=== PATIENT | male | born 1995 | race Caucasian/White ===

== ENCOUNTER 2023-11-22 12:43 | Emergency (ER) | payer OTHER, SELFPAY ==
[2023-11-22] VITALS (13 sets, daily range): BP systolic 127–137; BP diastolic 76–94; PULSE 61–91; RESP 18; TEMP 36.4; O2SAT 96–98; BMI 36.3
--- NOTE | 2023-11-22 13:52 | CRLHL7_ITS ---
For Patients: As a result of the Century Cures Act, medical imaging exams and procedure reports are released immediately into your electronic medical record. You may view this report before your referring provider. If you have questions, please contact your health care provider. INDICATION: Abdominal pain, not otherwise described. COMPARISON: None available. TECHNIQUE: Right upper quadrant grayscale and limited color Doppler ultrasound. FINDINGS: Liver: Diffusely echogenic and coarsened in echotexture. No suspicious focal lesion. No intrahepatic biliary ductal dilatation. Smooth contour. Gallbladder: Nondistended. Free of stones or significant sludge. Normal wall thickness. Negative sonographic Parker sign. CBD: 4mm Pancreas: Normal where visualized. The pancreas is partially obscured and therefore incompletely evaluated. Right Kidney: Normal echotexture. No hydronephrosis. No convincing sonographic evidence of nephrolithiasis. Midline Vasculature: Unremarkable where visualized. Peritoneal Cavity: No significant ascites. Additional Findings: None. IMPRESSION: Abnormal hepatic parenchymal echotexture which is most commonly due to hepatic steatosis. No focal liver lesion. Unremarkable gallbladder. No biliary ductal dilatation. Dictated by Noe Quispe MD @ 11/22/2023 2:29:34 PM (Electronically Signed)
--- NOTE | 2023-11-22 14:25 | ED.ABDPAIN ---
HPI - Abdominal Pain General Date Seen: 11/22/23 Chief Complaint: Abdominal Pain Stated Complaint: abdominal pain Time Seen by Provider: 11/22/23 13:36 Source: patient Mode of arrival: ambulatory Limitations: no limitations History of Present Illness HPI narrative: Patient is a 28-year-old male presenting to the emergency department for abdominal pain. He states over the past 3-4 days he has been having epigastric pain that is worse whenever he eats. States the pain right now is about a 4/10 but gets up to a 8/10 whenever he tries to eat. Do this he has not been eating much for the past couple days. Two days ago he went to in and [facility] early he was tested positive for strep. This was a screening testing was not having any pharyngitis symptoms at that time. States he still not having a sore throat. He was started on cefdinir and sent home. Since he was home he has been continuing to vomit and still having fevers but states the fever isn't as high. The highest fever was last night was 100.6. When he was at the ER he was given a GI cocktail which he states helped the symptoms significantly but only lasted for short amount of time. States the pain is mostly in the epigastric region but does feel like he goes into his chest and is a burning sensation. Denies diarrhea constipation, headache, shortness of breath, weakness, lightheadedness, dizziness. Denies any previous abdominal surgeries. Does state the pain radiates to his right upper quadrant. Related Data Home Medications ?Medication ?Instructions ?Recorded ?Confirmed cefdinir 11/22/23 Previous Rx's ?Medication ?Instructions ?Recorded azithromycin 250 mg tablet See Rx Instructions PO .COMPLEX #6 11/22/23 (Zithromax) tabs omeprazole 40 mg capsule,delayed 40 mg PO DAILY #14 caps 11/22/23 release ondansetron 4 mg disintegrating 4 mg PO Q6H #20 tabs 11/22/23 tablet oxycodone 5 mg tablet 5 mg PO Q6H PRN pain #6 tabs 11/22/23 Allergies Allergy/AdvReac Type Severity Reaction Status Date / Time nickel Allergy Mild Verified 11/22/23 13:15 amoxicillin Allergy Unknown Verified 11/22/23 13:15 Sulfa (Sulfonamide Allergy Unknown Verified 11/22/23 13:15 Antibiotics) Review of Systems Status of ROS Reports: 10 or more systems reviewed and unremarkable except as noted in History and below [facility] Social History Smoking Status: Never smoker Do you use any of these nicotine containing products: None How often do you have a drink containing alcohol: monthly or less AUDIT-C Alcohol total score: 1 Non-prescribed substance use: denies use Exam Narrative: Exam Narrative: Const: Well-nourished, Well-developed, in mild distress Eyes: PERRL, no conjunctival injection, and symmetrical lids HENT: Atraumatic external nose and ears. Moist mucous membranes. Neck: Symmetric, trachea midline, No thyromegaly. CVS: RRR, No murmurs or gallops. Peripheral pulses 2+ and equal in all extremities RESP: Unlabored respiratory effort. Clear to auscultation bilaterally. GI: Nontender/Nondistended, No rebound or guarding. MSK:Extremities w/o deformity, Normal Active ROM Skin: Warm, Dry. No rashes or lesions. Neuro: Normal Muscle tone, No focal neurological deficits. Psych: Awake, Alert, & Oriented x3. Appropriate mood and affect. Const: Vital Signs, click to edit/add: Vital Signs - 24 hr 11/22/23 13:08 Temperature 97.6 F Pulse Rate [Pulse Oximeter] 91 Respiratory Rate 18 Blood Pressure [Ri ght Upper Arm] 137/88 Pulse Oximetry 96 Oxygen Delivery Me thod Room Air Course Vital Signs Vital signs: Initial Vital Signs Temperature 97.6 F 11/22/23 13:08 Temperature Source Temporal Artery Scan 11/22/23 13:08 Pulse Rate 91 11/22/23 13:08 Respiratory Rate 18 11/22/23 13:08 Blood Pressure 137/88 11/22/23 13:08 Blood Pressure Mean 104 11/22/23 13:08 Blood Pressure Position Sitting 11/22/23 13:08 Pulse Oximetry 96 11/22/23 13:08 Oxygen Delivery Method Room Air 11/22/23 13:08 Vital Signs Temperature 97.6 F 11/22/23 13:08 Pulse Rate 91 11/22/23 13:08 Respiratory Rate 18 11/22/23 13:08 Blood Pressure 137/88 11/22/23 13:08 Pulse Oximetry 96 11/22/23 13:08 Oxygen Delivery Method Room Air 11/22/23 13:08 Temperature 97.6 F 11/22/23 13:08 Pulse Rate 91 11/22/23 13:08 Respiratory Rate 18 11/22/23 13:08 Blood Pressure 137/88 11/22/23 13:08 Pulse Oximetry 96 11/22/23 13:08 Oxygen Delivery Method Room Air 11/22/23 13:08 Medications Administered Medications: Discontinued Medications Generic Name Dose Route Start Last Admin Trade Name Stephanie PRN Reason Stop Dose Admin Lactated Ringer's 1,000 mls @ 1,000 mls/hr 11/22/23 13:52 11/22/23 15:04 Lactated Ringers 1000 Ml IV 11/22/23 14:51 1,000 mls/hr .Q1H ONE Administration Morphine Sulfate 4 mg 11/22/23 13:52 11/22/23 15:10 Morphine 4 Mg/Ml Inj IVP 11/22/23 13:53 4 mg ONCE ONE Administration Omeprazole 20 mg 11/22/23 15:46 11/22/23 15:55 Omeprazole [address] PO 11/22/23 15:47 20 mg ONCE ONE Administration Ondansetron HCl 4 mg 11/22/23 13:52 11/22/23 15:17 Ondansetron 2 Mg/Ml Inj IVP 11/22/23 13:53 4 mg ONCE ONE Administration MDM - Abdominal Pain MDM Narrative Medical decision making narrative: Patient is a 28-year-old male presenting to emergency department for epigastric pain. Symptoms ongoing for the past few days. Differential this time includes gastritis, pancreatitis, cholecystitis, less likely to be ESBL concern no previous abdominal surgeries. Considering location of pain unlikely to be diverticulitis or appendicitis. He does described as a burning sensation which makes me consider GERD. Does also state the pain goes up to his chest or will check a troponin and EKG to rule out ACS. Do not currently have CT available as it is being fixed and we do an ultrasound of his gallbladder. Also order lipase, magnesium, CBC, CMP. Patient given Zofran and morphine for symptoms along with a L of fluids. He continues to have no sore throat symptoms and do not believe any neck imaging is necessary. Patient's lab work all returned showing no concerning abnormalities. EKG shows no concerning abnormalities. This time pancreatitis unlikely. No clear signs of infection on lab work. Ultrasound of the right upper quadrant shows fatty liver disease but no signs of gallbladder issues. I did speak to them about possibly doing a CT scan for better evaluation. I explained to the the CT should be fixed within the next hour but there is quite a few people ahead of them so I am unsure exactly how long with take them to get the CT scan. At this time they would prefer to be discharged home. He was able to tolerate oral omeprazole and will be discharged with Zofran and omeprazole. Concerning he is still having the fevers also and azithromycin since he was diagnosed with strep throat. Also give him a couple pills of oxycodone to help with pain management in the meantime. They are agreeable to this plan. Lab Data Labs: Lab Results 11/22/23 11/22/23 11/22/23 Range/Units 14:28 14:55 15:00 WBC 8.85 (4.50-11.00) K/uL RBC 5.47 (4.30-5.90) m/uL Hgb 14.7 (13.5-17.5) gm/dL Hct 45.3 (37.0-53.0) % MCV 83 (80-100) fL MCH 27 (26-34) pg MCHC 33 (32-36) gm/dL RDW Coeff of [place] 12.1 (11.5-15.5) % Plt Count 248 (140-440) K/uL Neut % (Auto) 65.3 (42.0-72.0) % Lymph % (Auto) 21.5 (20-44) % [place] % (Auto) 11.6 H (0.0-11.0) % Eos % (Auto) 1.2 (0.0-7.0) % Baso % (Auto) 0.2 (0.0-3.0) % Neut # (Auto) 5.77 (1.7-7.0) K/uL Lymph # (Auto) 1.90 (0.90-2.90) K/uL [place] # (Auto) 1.00 H (0.00-0.90) K/UL Eos # (Auto) 0.11 (0.00-0.50) K/uL Baso # (Auto) 0.02 (0.00-0.30) K/uL Abs Immat Gran (auto) 0.02 (0.00-0.30) K/uL Imm/Tot Granulo (auto) 0.2 % Sodium 140 (135-149) mmol/L Potassium 3.7 (3.6-5.1) mmol/L Chloride 106 (96-114) mmol/L Carbon Dioxide 24 (20-32) mmol/L Anion Gap 10 (7-15) mEq/L BUN 25 H (5-24) mg/dL Creatinine 0.9 (0.5-1.5) mg/dL Estimated Creat Clear 136.87 Estimated GFR 119 ml/min Glucose 101 (60-115) mg/dL Calcium 9.7 (8.4-10.6) mg/dL Magnesium 2.3 (1.5-2.6) mg/dL Total Bilirubin 0.7 (0.1-1.5) mg/dL AST 41 H (12-35) U/L ALT 52 H (4-50) U/L Alkaline Phosphatase 54 (40-150) U/L Troponin I < 0.01 L (0.01-0.04) ng/mL Total Protein 7.8 (6.0-8.3) g/dL Albumin 4.5 (3.3-5.0) g/dL Lipase 55 (23-300) U/L Lab Acknowledgement Test Added POC Troponin I 0.00 L (0.01-0.04) ng/ml ECG Data Attestation: I personally reviewed and interpreted this ECG as follows: Prior ECG tracings: not available for review Interpretation: Normal sinus rhythm weight to the rate 74 beats per minute, normal intervals, normal axis, no ST or T-wave abnormalities Discharge Plan Discharge Clinical Impression: Gastroenteritis Patient Disposition: Home, Self-Care Condition: Improved Instructions: Gastroenteritis (DC) Additional Instructions: Take the omeprazole daily until symptoms resolve. Continue taking previously prescribed antibiotic an added azithromycin. Use the Zofran as needed for nausea. Take Tylenol for pain and but that is not working he can try oxycodone. Return to emergency department for new or worsening symptoms. Prescriptions: New ondansetron 4 mg tablet,disintegrating 4 mg PO Q6H Qty: 20 0RF oxycodone 5 mg tablet 5 mg PO Q6H PRN (Reason: pain) Qty: 6 0RF omeprazole 40 mg capsule,delayed release(DR/EC) 40 mg PO DAILY Qty: 14 0RF azithromycin [Zithromax] 250 mg tablet See Rx Instructions PO .COMPLEX Qty: 6 0RF Rx Instructions: For 250 mg dose pack: take 500 mg today (day 1), then 250 mg for 4 days (days 2-5) No Action cefdinir Follow Up/Referrals: Provider,Not a Local [Primary Care Provider] - Stand Alone Forms: [employer] Info Instructions
[2023-11-22 15:02] LABS: Basophils Absolute Auto 0.02 K/uL (0.00-0.30); Basophils Percent Auto 0.2 % (0.0-3.0); Eosinophils Absolute Auto 0.11 K/uL (0.00-0.50); Eosinophils Percent Auto 1.2 % (0.0-7.0); Hematocrit 45.3 % (37.0-53.0); Hemoglobin* 14.7 gm/dL (13.5-17.5); Immature Granulocytes Abs Auto 0.02 K/uL (0.00-0.30); Immature Granulocytes Pct Auto 0.2 %; Lymphocytes Percent Auto 21.5 % (20-44); Mean Corpuscular HGB Conc 33 gm/dL (32-36); Mean Corpuscular Hemoglobin 27 pg (26-34); Mean Corpuscular Volume 83 fL (80-100); Monocytes Percent Auto 11.6 % (0.0-11.0); Neutrophils Absolute Auto 5.77 K/uL (1.7-7.0); Neutrophils Percent Auto 65.3 % (42.0-72.0); Platelet Count* 248 K/uL (140-440); RDW Coefficient of Variation % 12.1 % (11.5-15.5); Red Blood Count 5.47 m/uL (4.30-5.90); White Blood Count* 8.85 K/uL (4.50-11.00)
[2023-11-22] MEDS: LACTATED RINGERS 1000 ML 1,000 ML IV (15:04)
[2023-11-22] MEDS: MORPHINE 4 MG/ML INJ IVP (15:10)
[2023-11-22 15:15] LABS: Albumin* 4.5 g/dL (3.3-5.0)
[2023-11-22 15:16] LABS: Chloride* 106 mmol/L (96-114); Potassium* 3.7 mmol/L (3.6-5.1); Sodium* 140 mmol/L (135-149)
[2023-11-22] MEDS: ONDANSETRON 2 MG/ML inj 4 MG IVP (15:17)
[2023-11-22 15:18] LABS: Anion Gap 10 mEq/L (7-15); Aspartate Amino Transferase* 41 U/L (12-35); Bilirubin Total* 0.7 mg/dL (0.1-1.5); Carbon Dioxide* 24 mmol/L (20-32); Creatinine* 0.9 mg/dL (0.5-1.5); Est. Creatinine Clearance* 136.87; Estimated Glomerular Filt Rate 119 ml/min; Total Protein* 7.8 g/dL (6.0-8.3)
[2023-11-22 15:19] LABS: Alanine Aminotransferase* 52 U/L (4-50); Alkaline Phosphatase* 54 U/L (40-150); Blood Urea Nitrogen* 25 mg/dL (5-24); Calcium* 9.7 mg/dL (8.4-10.6); Glucose* 101 mg/dL (60-115); Lipase* 55 U/L (23-300); Magnesium* 2.3 mg/dL (1.5-2.6); Slide Review Reflex No
[2023-11-22 15:31] LABS: Troponin I* < 0.01 ng/mL (0.01-0.04)
[2023-11-22] MEDS: OMEPRAZOLE 20 MG CAPSULE DR PO (15:55)
== END 2023-11-22 16:40 | disposition home or self-care (01) ==
PROVIDERS: Emergency Provider Student in an Organized Health Care Education/Training Program
DX: R10.13 Epigastric pain (principal)
CPT/HCPCS: 36415; 76705; 80053; 83690; 83735; 84484; 85025; 93005; 96374; 96375; 99283; 99284; A9270; J2270; J2405; J7120

== ENCOUNTER 2023-11-23 19:20 | Emergency (ER) | payer OTHER, SELFPAY ==
[2023-11-23 19:30] VITALS: BP 166/80; PULSE 104; RESP 18; TEMP 36.7; O2SAT 96; BMI 36.3
--- NOTE | 2023-11-23 19:45 | CRLHL7_ITS ---
For Patients: As a result of the Century Cures Act, medical imaging exams and procedure reports are released immediately into your electronic medical record. You may view this report before your referring provider. If you have questions, please contact your health care provider. INDICATION: Epigastric pain. TECHNIQUE: CT abdomen and pelvis acquired with 135 cc Isovue 370 IV contrast. COMPARISON: None. FINDINGS: Lower chest: Bleeding scattered atelectasis. Tiny hiatal hernia. Liver: Hepatic steatosis. No suspicious masses. Gallbladder and bile ducts: Unremarkable. No stones or inflammation. No biliary dilatation. Pancreas: Unremarkable. No mass or inflammation. Spleen: Splenomegaly no masses. Adrenal glands: Unremarkable. No nodules. Kidneys: Tiny cortical hypodensities, too small to characterize, including 6 millimeter exophytic right interpolar lesion (series 2/image 69). No suspicious masses, stones, or hydronephrosis. GI tract: Unremarkable. Normal in caliber. No sign of mass or inflammation. Normal appendix. Vasculature: Abdominal aorta is normal in caliber. Mesenteric arteries are patent. Lymph nodes: No lymphadenopathy. Peritoneum/Abdominal Wall: Unremarkable. No sign of mass or infiltration. No free air or significant free fluid. Pelvis: Unremarkable. Bones: Unremarkable for age. IMPRESSION: No acute intra-abdominal/pelvic abnormality. Hepatic steatosis. Mild splenomegaly. Incidental 6 millimeter exophytic right interpolar renal lesion, too small to characterize. Recommend outpatient nonemergent renal ultrasound. Please note that all CT scans at this facility use dose modulation, iterative reconstruction, and/or weight-based dosing when appropriate to reduce radiation dose to as low as reasonably achievable. Dictated by Luis Curran MD @ 11/23/2023 8:27:40 PM (Electronically Signed)
--- NOTE | 2023-11-23 19:47 | ED_ITS ---
HPI - General Adult General Date Seen: 11/23/23 Chief complaint: Abdominal Pain Stated complaint: Abdominal pain Time Seen by Provider: 11/23/23 19:37 Source: patient Mode of arrival: ambulatory Limitations: no limitations History of Present Illness HPI narrative: Patient is a 28-year-old male who is here with parents for evaluation of epigastric pain which has been ongoing for several days now. He was actually here in the ER yesterday, had labs and a right upper quadrant ultrasound all of which were normal. Did feel better briefly after a GI cocktail and was discharged home on omeprazole 40 mg daily which he says he has taken since leaving. He was seen in [facility] in the ER a couple days prior to that, again with epigastric pain, I believe had reported fever at that time and strep testing was done which was positive. He is therefore on antibiotics at this time. He at no time has had any kind of sore throat. Has not had fever today. Does not currently have chest pain or difficulty breathing. No cough. He says right now he does not have significant abdominal pain but as soon as he tries to eat or drink anything the pain becomes severe, and as a result he has really not been able to put anything in his system the past couple of days. He has not vomited any blood although he has had an episode or 2 of vomiting. Minimal stooling, no bloody stools. No ill contacts, no prior history of GI problems, no abdominal surgeries. Did have history of testicular torsion. CT scanner was down yesterday and he elected not to wait until that was up and running again, but has not improved since being seen yesterday. He denies tobacco or alcohol use. Takes occasional ibuprofen for headaches. Related Data Home Medications ?Medication ?Instructions ?Recorded ?Confirmed cefdinir 11/22/23 Previous Rx's ?Medication ?Instructions ?Recorded azithromycin 250 mg tablet See Rx Instructions PO .COMPLEX #6 11/22/23 (Zithromax) tabs omeprazole 40 mg capsule,delayed 40 mg PO DAILY #14 caps 11/22/23 release ondansetron 4 mg disintegrating 4 mg PO Q6H #20 tabs 11/22/23 tablet oxycodone 5 mg tablet 5 mg PO Q6H PRN pain #6 tabs 11/22/23 sucralfate 100 mg/mL oral 10 ml PO QID #1,200 mL 11/23/23 suspension (Carafate) Allergies Allergy/AdvReac Type Severity Reaction Status Date / Time nickel Allergy Mild Verified 11/23/23 20:08 amoxicillin Allergy Unknown Verified 11/23/23 20:08 Sulfa (Sulfonamide Allergy Unknown Verified 11/23/23 20:08 Antibiotics) Review of Systems Status of ROS: Reports: 10 or more systems reviewed and unremarkable except as noted in History and below [facility] Social History Smoking Status: Never smoker Do you use any of these nicotine containing products: None Second hand tobacco smoke exposure: No How often do you have a drink containing alcohol: monthly or less AUDIT-C Alcohol total score: 1 Non-prescribed substance use: denies use Exam Narrative: Exam Narrative: Vital signs as noted above. In general, an alert, nontoxic young man. Looks comfortable. Appears just a little bit pale to me. Head: Normocephalic, atraumatic. Eyes: Pupils are equal reactive. Extraocular movements are full. Conjunctivae are normal. ENT: Mucous membranes are moist. Throat is normal. Neck: Supple without lymphadenopathy. Heart: Regular rate and rhythm. No murmur or rub. Lungs: Clear bilaterally. No increased work of breathing, crackles or wheezes. Abdomen: Abdomen is soft, nondistended and nontender to palpation. Negative Parker's. No McBurney's point tenderness. Extremities: Well perfused. No edema. No calf tenderness. Pulses intact. Neurologic: Patient is alert and oriented to person and place. Speech is fluent. Face is symmetric. Moves all extremities equally. Affect: Normal. Skin: Warm and dry. Well perfused. Const: Vital Signs, click to edit/add: Vital Signs - 24 hr 11/23/23 19:30 Temperature 98.1 F Pulse Rate [Pulse Oximeter] 104 H Respiratory Rate 18 Blood Pressure [Ri ght Upper Arm] 166/80 H Pulse Oximetry 96 Oxygen Delivery Me thod Room Air Course Course ED Course: Records were reviewed from yesterday, really no significant findings there. Will go ahead and repeat some labs, I think repeating a lipase is particularly indicated to rule out pancreatitis. With a negative ultrasound and labs after several days of pain I would suspect this is not related to gallbladder disease. Colitis unlikely in the absence of diarrhea, diverticulitis is a possibility along with gastritis, peptic ulcer disease, duodenal disease, would doubt perforation based on absence of any peritoneal signs after several days of symptoms. Likewise would doubt esophageal perforation given absence of si gnificant findings on exam and labs yesterday. Will do a CT scan today to look for other possible causes. CT scan by my review did not show any acute findings, radiology read as follows: FINDINGS: Lower chest: Bleeding scattered atelectasis. Tiny hiatal hernia. Liver: Hepatic steatosis. No suspicious masses. Gallbladder and bile ducts: Unremarkable. No stones or inflammation. No biliary dilatation. Pancreas: Unremarkable. No mass or inflammation. Spleen: Splenomegaly no masses. Adrenal glands: Unremarkable. No nodules. Kidneys: Tiny cortical hypodensities, too small to characterize, including 6 millimeter exophytic right interpolar lesion (series 2/image 69). No suspicious masses, stones, or hydronephrosis. GI tract: Unremarkable. Normal in caliber. No sign of mass or inflammation. Normal appendix. Vasculature: Abdominal aorta is normal in caliber. Mesenteric arteries are patent. Lymph nodes: No lymphadenopathy. Peritoneum/Abdominal Wall: Unremarkable. No sign of mass or infiltration. No free air or significant free fluid. Pelvis: Unremarkable. Bones: Unremarkable for age. IMPRESSION: No acute intra-abdominal/pelvic abnormality. Hepatic steatosis. Mild splenomegaly. Incidental 6 millimeter exophytic right interpolar renal lesion, too small to characterize. Recommend outpatient nonemergent renal ultrasound. Labs today remain reassuring, his white blood cell count is normal at 9.85, he has a slight monocytosis but otherwise diff is unremarkable. Electrolytes are normal, CO2 is 23, BUN is 20 and creatinine is 0.8. Blood sugars 100. Direct bilirubin is 0.6 but total bilirubin is 1.1, significance unclear in setting of normal right upper quadrant ultrasound and CT scan. He has mild elevations of his AST and ALT at 51 and 64 in significantly increased related to yesterday. His CRP is 3.3 today no test was done yesterday so I do not have a trend there. Lipase is normal at 62. I have discussed all this with the patient and his fa mara. He describes significant difficulty with trying to eat or drink anything as he says he gets severe burning pain in his lower chest and upper abdomen which lasts several minutes and then improves, he feels like things are having trouble getting down although he has not had any history of food impaction. I do think it would be reasonable given the severity of his symptoms to schedule him for upper endoscopy, I have ordered this test. I have stressed to him that he will need to make an appointment with the primary care doctor for follow-up. H pylori testing should be considered. Discussed that Prilosec typically takes a few days before full effect, so I am not surprised that he has not had significant benefit since yesterday with that medication. I did also prescribe Carafate for him to try at home. For here, he requests another GI cocktail so that he can drink some fluids, I gave him a protein shake to try here. For significant changes, hematemesis, fevers, severe unrelenting pain, return to the emergency department at any time. Otherwise, outpatient plan as outlined above. Vital Signs Vital signs: Initial Vital Signs Temperature 98.1 F 11/23/23 19:30 Temperature Source Temporal Artery Scan 11/23/23 19:30 Pulse Rate 104 H 11/23/23 19:30 Pulse Rhythm Regular 11/23/23 19:30 Respiratory Rate 18 11/23/23 19:30 Blood Pressure 166/80 H 11/23/23 19:30 Blood Pressure Mean 108 H 11/23/23 19:30 Blood Pressure Position Sitting 11/23/23 19:30 Pulse Oximetry 96 11/23/23 19:30 Oxygen Delivery Method Room Air 11/23/23 19:30 Vital Signs Temperature 98.1 F 11/23/23 19:30 Pulse Rate 104 H 11/23/23 19:30 Respiratory Rate 18 11/23/23 19:30 Blood Pressure 166/80 H 11/23/23 19:30 Pulse Oximetry 96 11/23/23 19:30 Oxygen Delivery Method Room Air 11/23/23 19:30 Temperature 98.1 F 11/23/23 21:33 Pulse Rate 89 11/23/23 21:33 Respiratory Rate 18 11/23/23 21:33 Blood Pressure 145/74 H 11/23/23 21:33 Pulse Oximetry 96 11/23/23 21:28 Oxygen Delivery Method Room Air 11/23/23 21:28 Medications Administered Medications: Discontinued Medications Generic Name Dose Route Start Last Admin Trade Name Freq PRN Reason Stop Dose Admin Sodium Chloride 1,000 mls @ 1,000 mls/hr 11/23/23 19:45 11/23/23 21:15 0.9 % Sodium Chloride 1000 Ml IV 11/23/23 20:44 Infused .Q1H RAFIQ Infusion Lidocaine/Aluminum/Magnesium/Simeth 30 ml 11/23/23 20:52 11/23/23 20:58 Gi Cocktail (Visc Lido/Antacid) 30 Ml PO 11/23/23 20:53 30 ml ONCE ONE Administration Medical Decision Making Lab Data Labs: Lab Results 11/23/23 Range/Units 20:00 WBC 9.85 (4.50-11.00) K/uL RBC 5.73 (4.30-5.90) m/uL Hgb 15.5 (13.5-17.5) gm/dL Hct 47.2 (37.0-53.0) % MCV 82 (80-100) fL MCH 27 (26-34) pg MCHC 33 (32-36) gm/dL RDW Coeff of Malick 11.8 (11.5-15.5) % Plt Count 243 (140-440) K/uL Neut % (Auto) 59.2 (42.0-72.0) % Lymph % (Auto) 26.9 (20-44) % [place] % (Auto) 12.7 H (0.0-11.0) % Eos % (Auto) 0.9 (0.0-7.0) % Baso % (Auto) 0.2 (0.0-3.0) % Neut # (Auto) 5.83 (1.7-7.0) K/uL Lymph # (Auto) 2.65 (0.90-2.90) K/uL [place] # (Auto) 1.30 H (0.00-0.90) K/UL Eos # (Auto) 0.09 (0.00-0.50) K/uL Baso # (Auto) 0.02 (0.00-0.30) K/uL Abs Immat Gran (auto) 0.01 (0.00-0.30) K/uL Imm/Tot Granulo (auto) 0.1 % Sodium 140 (135-149) mmol/L Potassium 4.1 (3.6-5.1) mmol/L Chloride 105 (96-114) mmol/L Carbon Dioxide 23 (20-32) mmol/L Anion Gap 12 (7-15) mEq/L BUN 20 (5-24) mg/dL Creatinine 0.8 (0.5-1.5) mg/dL Estimated Creat Clear 153.97 Estimated GFR 123 ml/min Glucose 100 (60-115) mg/dL Calcium 9.2 (8.4-10.6) mg/dL Total Bilirubin 1.1 (0.1-1.5) mg/dL Direct Bilirubin 0.6 H (0.0-0.5) mg/dL AST 51 H (12-35) U/L ALT 64 H (4-50) U/L Alkaline Phosphatase 60 (40-150) U/L C-Reactive Protein 3.3 H (0.5-1.0) mg/dL Total Protein 8.0 (6.0-8.3) g/dL Albumin 4.6 (3.3-5.0) g/dL Lipase 62 (23-300) U/L Discharge Plan Discharge Clinical Impression: Abdominal pain, epigastric Patient Disposition: Home, Self-Care Condition: Stable Instructions: Epigastric Pain (ED) Additional Instructions: I would recommend to continue the omeprazole at 40 mg daily. I have prescribed something called Carafate which has somewhat of a coating affect and can help with pain related to gastritis or ulcers. I do think endoscopy is a reasonable next test for you, and I have placed an order for this. Someone should contact you to get this scheduled. You will need primary care follow-up, please call the clinic tomorrow at [phone] to schedule an appointment with someone in clinic. Avoid medications such as ibuprofen, Aleve, and naproxen for now. Avoid alcohol. All of these things are irritating to the stomach lining. C onsider testing for H pylori, this can be accomplished at time of endoscopy or by a stool test through clinic. Also on CT scan, you have a tiny, 6 mm indeterminate lesion on your kidney. This is likely a simple cyst but as it is too small to characterize on CT scan, they recommend that you have an ultrasound as an outpatient, non emergently. This can be arranged with primary care. Prescriptions: New sucralfate [Carafate] 100 mg/mL suspension 10 ml PO QID Qty: 1200 2RF Rx Instructions: swish in mouth and swallow; use after food/drink No Action cefdinir ondansetron 4 mg tablet,disintegrating 4 mg PO Q6H Qty: 20 0RF oxycodone 5 mg tablet 5 mg PO Q6H PRN (Reason: pain) Qty: 6 0RF omeprazole 40 mg capsule,delayed release(DR/EC) 40 mg PO DAILY Qty: 14 0RF azithromycin [Zithromax] 250 mg tablet See Rx Instructions PO .COMPLEX Qty: 6 0RF Rx Instructions: For 250 mg dose pack: take 500 mg today (day 1), then 250 mg for 4 days (days 2-5) Follow Up/Referrals: Provider,Not a Local [Primary Care Provider] - Stand Alone Forms: [employer] Info Instructions
[2023-11-23 20:07] LABS: Basophils Absolute Auto 0.02 K/uL (0.00-0.30); Basophils Percent Auto 0.2 % (0.0-3.0); Eosinophils Absolute Auto 0.09 K/uL (0.00-0.50); Eosinophils Percent Auto 0.9 % (0.0-7.0); Hematocrit 47.2 % (37.0-53.0); Hemoglobin* 15.5 gm/dL (13.5-17.5); Immature Granulocytes Abs Auto 0.01 K/uL (0.00-0.30); Immature Granulocytes Pct Auto 0.1 %; Lymphocytes Absolute Auto 2.65 K/uL (0.90-2.90); Lymphocytes Percent Auto 26.9 % (20-44); Mean Corpuscular HGB Conc 33 gm/dL (32-36); Mean Corpuscular Hemoglobin 27 pg (26-34); Mean Corpuscular Volume 82 fL (80-100); Monocytes Percent Auto 12.7 % (0.0-11.0); Neutrophils Absolute Auto 5.83 K/uL (1.7-7.0); Neutrophils Percent Auto 59.2 % (42.0-72.0); Platelet Count* 243 K/uL (140-440); RDW Coefficient of Variation % 11.8 % (11.5-15.5); Red Blood Count 5.73 m/uL (4.30-5.90); White Blood Count* 9.85 K/uL (4.50-11.00)
[2023-11-23 20:16] LABS: Slide Review Reflex No
[2023-11-23] MEDS: 0.9 % SODIUM CHLORIDE 1000 ml 1,000 ML IV (20:16)
[2023-11-23 20:19] LABS: Albumin* 4.6 g/dL (3.3-5.0); Chloride* 105 mmol/L (96-114); Sodium* 140 mmol/L (135-149)
[2023-11-23 20:20] LABS: Potassium* 4.1 mmol/L (3.6-5.1)
[2023-11-23 20:22] LABS: Creatinine* 0.8 mg/dL (0.5-1.5); Est. Creatinine Clearance* 153.97; Estimated Glomerular Filt Rate 123 ml/min
[2023-11-23 20:23] LABS: Alanine Aminotransferase* 64 U/L (4-50); Alkaline Phosphatase* 60 U/L (40-150); Anion Gap 12 mEq/L (7-15); Aspartate Amino Transferase* 51 U/L (12-35); Bilirubin Direct* 0.6 mg/dL (0.0-0.5); Bilirubin Total* 1.1 mg/dL (0.1-1.5); Blood Urea Nitrogen* 20 mg/dL (5-24); Calcium* 9.2 mg/dL (8.4-10.6); Carbon Dioxide* 23 mmol/L (20-32); Glucose* 100 mg/dL (60-115); Lipase* 62 U/L (23-300)
[2023-11-23 20:25] LABS: C Reactive Protein* 3.3 mg/dL (0.5-1.0)
[2023-11-23] MEDS: GI COCKTAIL (VISC LIDO/ANTACID) 30 ML PO (20:58)
[2023-11-23 21:28] VITALS: BP 145/74; PULSE 89; RESP 18; TEMP 36.7; O2SAT 96
[2023-11-23 21:33] VITALS: BP 145/74; PULSE 89; RESP 18; TEMP 36.7
== END 2023-11-23 21:34 | disposition home or self-care (01) ==
PROVIDERS: Emergency Provider Emergency Medicine
DX: R10.13 Epigastric pain (principal)
CPT/HCPCS: 36415; 74177; 80048; 80076; 83690; 85025; 86140; 96360; 99284; 99285; A9270; J7030; Q9967

== ENCOUNTER 2023-11-29 11:28 | Outpatient (CLI) | payer OTHER, SELFPAY ==
--- NOTE | 2023-11-29 12:09 | W.ANESCHARGE ---
Anesthesia Charges Start Date/Time Anesthesia Start Date: 11/29/23 Anesthesia Start Time: 12:41 Stop Date/Time Anesthesia Stop Date: 11/29/23 Anesthesia Stop Time: 13:02
--- NOTE | 2023-11-29 13:08 | W.ANESCHARGE ---
Anesthesia Charges Start Date/Time Anesthesia Start Date: 11/29/23 Anesthesia Start Time: 12:41 Stop Date/Time Anesthesia Stop Date: 11/29/23 Anesthesia Stop Time: 13:02
== END 2023-11-29 11:29 | disposition home or self-care (01) ==
PROVIDERS: Visit Provider Surgery
DX: R10.13 Epigastric pain (principal); K21.9 Gastro-esophageal reflux disease without esophagitis; K44.9 Diaphragmatic hernia without obstruction or gangrene; K22.11 Ulcer of esophagus with bleeding; K22.89 Other specified disease of esophagus
CPT/HCPCS: 00731; 43239; 88305; 88312; 88341; 88342; J2704; J3490